=== PATIENT | male | born 1935 | race Caucasian/White ===

== ENCOUNTER 2020-08-24 09:35 | Emergency (ER) | payer MEDICARE, BC ==
[~2020-08-24] VITALS: Ht 185.4 cm; Wt 79.5 kg
[~2020-08-24 09:35] MED LIST: BYETTA; CEPHALEXIN500 M1 PO; GLIPIZIDE10 M1 PO; VICODIN 5/5001 UDTAB PO; cholesterol med
[2020-08-24 09:55] VITALS: TEMP 97.6
[2020-08-24 10:33] LABS: COLLECTION METHOD CATHETER
[2020-08-24 10:43] LABS: MUCOUS Present /lpf; PH 5 (5-8); SQUAMOUS EPITHELIAL None Seen /hpf; URINE APPEARANCE Cloudy; URINE BACTERIA None Seen /hpf; URINE BILIRUBIN Negative (NEGATIVE); URINE BLOOD 3+ (NEGATIVE); URINE COLOR Yellow; URINE GLUCOSE Negative (NEGATIVE); URINE KETONE Negative (NEGATIVE); URINE LEUKOCYTE ESTERASE Trace (NEGATIVE); URINE NITRATE Negative (NEGATIVE); URINE PROTEIN(semi-quant) 2+ (NEGATIVE); URINE RBC >50 /hpf; URINE UROBILINOGEN Negative (NEGATIVE)
[2020-08-24 11:30] VITALS: BP 136/66; PULSE 79
== END 2020-08-24 11:30 | disposition home or self-care (01) ==
LOC: COL.ER 09:35
PROVIDERS: Family Medicine
DX: R33.9 Retention of urine, unspecified (principal); E11.9 Type 2 diabetes mellitus without complications; Z79.84 Long term (current) use of oral hypoglycemic drugs